=== PATIENT | female | born 1965 | race Caucasian/White ===

== ENCOUNTER 2021-08-29 15:02 | Emergency (ER) | payer BC ==
[~2021-08-29 15:02] MED LIST: OMNICEF 300 MG300 MG PO
[2021-08-29 15:28] LABS: HEMOGLOBIN 13.7 gm/dl (12.3-15.3); RED BLOOD COUNT 4.38 M/UL (4.00-5.10); WHITE BLOOD COUNT 13.9 K/UL (4.5-11.0)
== END 2021-08-30 09:00 | disposition short-term general hospital (02) ==
LOC: ER1 15:02
PROVIDERS: Physician Assistant
DX: N13.2 Hydronephrosis with renal and ureteral calculous obstruction (principal); N17.9 Acute kidney failure, unspecified
CPT/HCPCS: 80053; 85025; 96374; 96375; 96376; 99285; J0696; J2270; J2405